=== PATIENT | male | born 1990 | race African-American/Black ===

== ENCOUNTER 2018-11-06 04:33 | Emergency (ER) | payer SELFPAY ==
[~2018-11-06] VITALS: Ht 180.3 cm; Wt 92.2 kg
[2018-11-06 04:36] VITALS: BP 142/88
[2018-11-06] MEDS ORDERED: DEXAMETHASONE 4 MG/ML, 1ML ONE (04:54)
--- NOTE | 2018-11-06 04:59 | NUR ---
pt medicated per mar
[2018-11-06] MEDS ORDERED: DEXAMETHASONE 4 MG/ML, 1ML IM ONE (05:00)
[2018-11-06] MEDS ORDERED: PLEASE ENTER WEIGHT MC SCH (05:30)
[2018-11-06] MEDS ORDERED: BICILLIN-LA 1,200,000 UNITS/2 ML IM ONE (05:30)
--- NOTE | 2018-11-06 05:44 | NUR ---
pt medicated per sep. pt d/c with d/c summary and scripts. all questions answered. pt ambulates to registration desk with steady gait for d/c home.
== END 2018-11-06 05:47 | disposition home or self-care (01) ==
LOC: ED 05:12
DX: J02.9 Acute pharyngitis, unspecified (principal)
CPT/HCPCS: 96372; 99283; J0561; J1100